=== PATIENT | male | born 1945 | race American Indian/Alaskan Native ===

== ENCOUNTER 2019-09-23 18:16 | Emergency (ER) | payer MEDICARE ==
--- NOTE | 2019-09-23 21:01 | Emergency Department Report ---
HPI - General Chief Complaint: Tube Replacement Time Seen by Provider: 09/23/19 19:45 - HPI HPI: 74-year-old -[place] male presents to the emergency department for a feeding tube replacement after the tube was accidentally cut by his home hospice worker. The patient is nonverbal, non-mobile and essentially incapacitated secondary to "stage V" Parkinson's disease and "agent orange." The patient does do some feeding orally but he gets his medications and some supplemental nutrition through the feeding tube. ED Past Medical Hx - Past Medical History Additional medical history: Parkinsons, MRSA - Surgical History Past Surgical History?: Yes Additional Surgical History: PEG Tube placement - Social History Smoking Status: Never Smoker Substance Use Type: None ED Review of Systems ROS: Stated complaint: DISLOGED FEEDING TUBE Other details as noted in HPI Comment: Unobtainable due to pts medical conditions Physical Exam - Physical Exam Vital Signs: Vital Signs 09/23/19 19:37 Temperature 98.5 F Pulse Rate 99 H Respiratory 16 Rate Blood Pressure 107/61 [Left] O2 Sat by Pulse 98 Oximetry Physical Exam: GENERAL: The patient is well-developed well-nourished. HEENT: Normocephalic. Atraumatic. Patient has moist mucous membranes. EYES: Extraocular motions are intact. NECK: Supple. Trachea is midline. CHEST/LUNGS: Clear to auscultation. There is no respiratory distress noted. HEART/CARDIOVASCULAR: Regular. There is no tachycardia. There is no murmur. ABDOMEN: Abdomen is soft, nontender. Patient has normal bowel sounds. There is a partial PEG tube in place to the left middle abdomen. There is no current bleeding, surrounding erythema, discharge. SKIN:Skin is warm and dry. . NEURO: Patient is awake but nonverbal. Withdraws from painful stimuli. MUSCULOSKELETAL: Patient is contracted to all 4 extremities. ED Course Vital Signs 09/23/19 19:37 Temperature 98.5 F Pulse Rate 99 H Respiratory 16 Rate Blood Pressure 107/61 [Left] O2 Sat by Pulse 98 Oximetry - Feeding Tube Replacement Reason for Replacement: not functioning/damaged Initial Tube Inserted: greater than 4 weeks Type of Tube: gastrostomy Use of Tube: medications and feeding Insertion Site Prior to Procedure: clean Tube Used for Reinsertion: AARON Irish Tube Size (F): 20 Balloon Size (mls): 10 Verification of Placement: gastrograffin injection Tube Secured by: tape/dressing Patient Tolerated Procedure: well ED Medical Decision Making - Radiology Data Radiology results: image reviewed interpreted by me: Gastrostomy tube x-ray with contrast shows appropriate placement of the AARON tube without signs of extravasation. - Medical Decision Making This patient was brought in for a replacement of his feeding tube after the tube itself was accidentally earlier in the afternoon. The feeding tube was about 5 weeks old. It was removed without any difficulty. There was no sign of any bleeding, signs of infection. A 20 Irish AARON tube was placed without any difficulty or complications. Confirmation of placement was obtained with a G- tube study/x-ray did not show any signs of extravasation. Vital signs stable throughout his ED course. Critical Care Time: No Critical care attestation.: If time is entered above; I have spent that time in minutes in the direct care of this critically ill patient, excluding procedure time. ED Disposition Clinical Impression: PEG (percutaneous endoscopic gastrostomy) adjustment/replacement/removal Feeding tube dysfunction Qualifiers: Encounter type: initial encounter Qualified Code(s): T85.598A - Other mechanical complication of other gastrointestinal prosthetic devices, implants and grafts, initial encounter Disposition: DC-01 TO HOME OR SELFCARE Is pt being admited?: No Condition: Stable Instructions: How to Use and Care for Your PEG Tube (ED) Additional Instructions: Please follow up with the primary care physician and program director/traffic director as needed. Return to the emergency Department with any concerns or with any acute distress. Referrals: PRIMARY CARE, [Primary Care Provider] - 3-5 Days Time of Disposition: 21:57
--- NOTE | 2019-09-23 21:56 | XRay Report ---
SUPINE ABDOMEN, 2 VIEWS 09/23/2019 INDICATION / CLINICAL INFORMATION: PEG tube replacement. COMPARISON: None available. FINDINGS: Radiopaque contrast is injected through the gastrostomy tube. Contrast opacifies the stomach and prox imal duodenum with no evidence of extravasation. Signer Name: Deonte Johnson MD Signed: 09/23/2019 9:51 PM Workstation Name: [id number]
[2019-09-23 22:25] VITALS: BP 96/62
== END 2019-09-24 01:15 | disposition home or self-care (01) ==
LOC: ED 18:16
DX: T85.598A Other mechanical complication of other gastrointestinal prosthetic devices, implants and grafts, initial encounter (principal); Z43.1 Encounter for attention to gastrostomy; G20 Parkinson's disease; Z98.890 Other specified postprocedural states
CPT/HCPCS: 43762; 74018; 99283; Q9967